=== PATIENT | male | born 1990 | race Asian ===

== ENCOUNTER 2017-09-04 09:17 | Emergency (ER) | payer MEDICAID, OTHER ==
--- NOTE | 2017-09-04 10:20 | ED Physician Documentation ---
PD HPI CHEST PAIN - Stated complaint Stated Complaint: SOA - Chief complaint Chief Complaint: General - History obtained from History obtained from: Patient - History of Present Illness Timing - onset: How many hours ago (2) Timing - onset during: Emotional event (Arguing with girlfriend.) Timing - duration: Hours (2) Timing - details: Still present Quality: Sharp Location: Right chest Worsened by: Inspiration Associated symptoms: Shortness of air Similar symptoms before: Has not had sx before - Additional information Additional information: The patient is a 26-year-old male who presents with right-sided chest pain that started suddenly about 2 hours prior to arrival, while he was arguing with his girlfriend. He describes it as a sharp pain that is worse with inspiration. He reports associated shortness of breath. He denies cough or fever. He denies history of similar symptoms in the past. He does admit to smoking cigarettes, and smoked methamphetamine this morning. Review of Systems Constitutional: denies: Fever Ears: denies: Tinnitus/ringing Nose: denies: Congestion Throat: denies: Sore throat Cardiac: reports: Chest pain / pressure Respiratory: reports: Dyspnea. denies: Cough GI: denies: Abdominal Pain, Nausea, Vomiting : denies: Dysuria Skin: denies: Rash Musculoskeletal: denies: Back pain, Extremity pain Neurologic: denies: Focal weakness, Numbness, Headache PD PAST MEDICAL HISTORY - Past Medical History Cardiovascular: None Respiratory: None Endocrine/Autoimmune: None - Past Surgical History Past Surgical History: Yes Ortho: Arthroscopic surgery - Allergies Allergies/Adverse Reactions: Allergies Allergy/AdvReac Type Severity Reaction Status Date / Time Penicillins AdvReac Hives Verified 09/04/17 09:28 - Social History Does the pt smoke?: Yes Smoking Status: Current every day smoker Does the pt drink ETOH?: Yes Substance Use and Type: Meth - Immunizations Immunizations are current?: Yes PD ED PE NORMAL - Vitals Vital signs reviewed: Yes (tachycardic) - General General: Alert and oriented X 3, Well developed/nourished - HEENT HEENT: Atraumatic, EOMI, Moist mucous membranes, Pharynx benign - Neck Neck: No adenopathy, No JVD - Cardiac Cardiac: No murmur, Other (Rapid rate, regular rhythm) - Respiratory Respiratory: Clear bilaterally, Other (No chest wall tenderness.) - Abdomen Abdomen: Soft, Non tender, Other (Scaphoid abdomen.) - Back Back: No CVA TTP, No spinal TTP - Derm Derm: No rash - Extremities Extremities: No edema, No calf tenderness / cord - Neuro Neuro: Alert and oriented X 3, No motor deficit Results - Vitals Vitals: Vital Signs - 24 hr 09/04/17 09/04/17 09/04/17 09:23 09:38 10:08 Temperature 38.1 C H Heart Rate 110 H 112 H 106 H Respiratory 18 10 L 14 Rate Blood Pressure 135/85 H 117/68 112/49 L O2 Saturation 99 97 96 09/04/17 09/04/17 09/04/17 10:30 11:25 11:42 Temperature Heart Rate 101 H 60 102 H Respiratory 15 15 15 Rate Blood Pressure 119/59 L 119/63 118/69 O2 Saturation 96 92 99 09/04/17 12:00 Temperature Heart Rate 94 Respiratory 14 Rate Blood Pressure 92/39 L O2 Saturation 96 Oxygen O2 Source Room air - Rads (name of study) CXR Radiology: Prelim report reviewed, EMP read contemporaneously, See rad report ( Normal 2 view chest. No evidence of acute cardiopulmonary abnormality.) PD MEDICAL DECISION MAKING - ED course Complexity details: reviewed results, re-evaluated patient, considered differential, d/w patient ED course: The patient's presentation is most consistent with right sided chest pain due to gastroesophageal reflux. Because of his dramatic initial presentation and sudden onset of his symptoms, the possibility of pneumothorax was considered. Chest x-ray reveals no evidence of pneumothorax or other radiographic abnormality. Treatment in the emergency department included administration of GI cocktail, which markedly improved his symptoms. Prior to discharge I discussed with him the likely cause of his symptoms, symptomatic treatment, as well as potentially worrisome signs or symptoms that should prompt reevaluation in the emergency department. He subsequently left the emergency department prior to receiving his discharge instructions. - Sepsis Event Vital Signs: Vital Signs - 24 hr 09/04/17 09/04/17 09/04/17 09:23 09:38 10:08 Temperature 38.1 C H Heart Rate 110 H 112 H 106 H Respiratory 18 10 L 14 Rate Blood Pressure 135/85 H 117/68 112/49 L O2 Saturation 99 97 96 07/06/18 07/06/18 07/06/18 10:30 11:25 11:42 Temperature Heart Rate 101 H 60 102 H Respiratory 15 15 15 Rate Blood Pressure 119/59 L 119/63 118/69 O2 Saturation 96 92 99 09/04/17 12:00 Temperature Heart Rate 94 Respiratory 14 Rate Blood Pressure 92/39 L O2 Saturation 96 Oxygen O2 Source Room air Departure - Departure Disposition: 01 Home, Self Care Clinical Impression: Chest pain due to GERD Condition: Stable Instructions: ED GERD Discharge Date/Time: 09/04/17 12:43
--- NOTE | 2017-09-04 10:52 | XRAY Report ---
Procedure Date: 09/04/2017 Accession Number: [id number] / [id number] Procedure: XR - Chest 2 View X-Ray CPT Code: 89019 FULL RESULT: EXAM: CHEST RADIOGRAPHY EXAM DATE: 09/04/2017 10:44 AM. CLINICAL HISTORY: Right sided chest pain, sudden onset. COMPARISON: None. TECHNIQUE: 2 views. FINDINGS: Lungs/Pleura: No focal opacities evident. No pleural effusion. No pneumothorax. Normal volumes. Mediastinum: Heart and mediastinal contours are unremarkable. Other: No acute osseous abnormality. IMPRESSION: Normal 2-view chest radiography. No acute cardiopulmonary abnormality. RADIA
[2017-09-04] MEDS ORDERED: LIDOCAINE VISCOUS 2% 15 ML UDC MM STA (11:16)
[2017-09-04] MEDS ORDERED: MAG HYDROX/AL HYDROX/SIMETH 30 ML UDC PO STA (11:16)
[2017-09-04 12:40] VITALS: BP 92/39
== END 2017-09-04 12:43 | disposition home or self-care (01) ==
LOC: ED 09:17
DX: K21.9 Gastro-esophageal reflux disease without esophagitis (principal); R07.9 Chest pain, unspecified; F17.210 Nicotine dependence, cigarettes, uncomplicated
CPT/HCPCS: 71046; 99283; A9270

== ENCOUNTER 2018-01-07 16:14 | Emergency (ER) | payer MEDICAID ==
[2018-01-07 16:28] VITALS: BP 149/100
[2018-01-07] MEDS ORDERED: CLINDAMYCIN 150 MG CAPSULE PO STA (17:07)
[2018-01-07] MEDS ORDERED: ACETAMINOPHEN 325 MG TABLET PO STA (17:07)
[2018-01-07] MEDS ORDERED: IBUPROFEN 800 MG TABLET PO STA (17:07)
[2018-01-07] MEDS ORDERED: LIDOCAINE VISCOUS 2% 15 ML UDC MM STA (17:08)
--- NOTE | 2018-01-07 17:27 | ED Physician Documentation ---
History of Present Illness - Stated complaint Stated Complaint: TOOTH PX - Chief complaint Chief Complaint: Heent - Additonal information Additional information: hx from pt 27 y/o male to ED with severe right upper lower denatl pain X several weeks states he has no dentist think fever at home Review of Systems Constitutional: reports: Fever Throat: reports: Dental pain / toothache PD PAST MEDICAL HISTORY - Past Medical History Cardiovascular: None Respiratory: None Endocrine/Autoimmune: None - Past Surgical History Past Surgical History: Yes Ortho: Arthroscopic surgery - Present Medications Home Medications: Ambulatory Orders Medication Instructions Recorded Confirmed Clindamycin HCl [Clindamycin 300MG 300 mg PO Q6H #28 capsule 01/07/18 CAP] Lidocaine Viscous 2% [Xylocaine 1 ml MM Q4H PRN #30 ml 01/07/18 Viscous 2%] - Allergies Allergies/Adverse Reactions: Allergies Allergy/AdvReac Type Severity Reaction Status Date / Time Penicillins AdvReac Hives Verified 01/07/18 16:27 - Social History Does the pt smoke?: Yes Smoking Status: Current every day smoker Does the pt drink ETOH?: Yes - Immunizations Immunizations are current?: Yes PD ED PE NORMAL - Vitals Vital signs reviewed: Yes - General General: Alert and oriented X 3 - HEENT HEENT: No: Dentition benign (extensive deyay only right upper molar has prior filling but gap between gum and tooth and erythema, last two lower right molars are extensively decayed down to the gum line, no trismus, no sublingual swelling) - Neck Neck: Supple, no meningeal sign - Cardiac Cardiac: RRR - Respiratory Respiratory: No respiratory distress Results - Vitals Vitals: Vital Signs - 24 hr 01/07/18 16:26 Temperature 37 C Heart Rate 102 H Respiratory 18 Rate Blood Pressure 149/100 H O2 Saturation 100 Oxygen O2 Source Room air PD MEDICAL DECISION MAKING - ED course ED course: pt felt much better after apap motin and lidocaine Departure - Departure Disposition: 01 Home, Self Care Clinical Impression: Dental infection Condition: Good Instructions: ED Abscess Dental Prescriptions: Clindamycin HCl [Clindamycin 300MG CAP] 300 mg PO Q6H #28 capsule Lidocaine Viscous 2% [Xylocaine Viscous 2%] 1 ml MM Q4H PRN #30 ml PRN Reason: tooth pain Comments: The antibiotic will help fo a short while but you really need to see a dentist I suggest [facility] in [place] Or you can call your insurance to see which dental clinics are covered. When you call to schedule please say you need an ER follow up - that may help you get seen sooner Return if worse - swelling to face or under the tongue, unable to swallow or breathe Forms: Activity restrictions
== END 2018-01-07 18:11 | disposition home or self-care (01) ==
LOC: ED 16:14
DX: K04.7 Periapical abscess without sinus (principal); F17.200 Nicotine dependence, unspecified, uncomplicated
CPT/HCPCS: 99283; A9270

== ENCOUNTER 2018-04-21 11:42 | Emergency (ER) | payer MEDICAID ==
[2018-04-21 11:58] VITALS: BP 122/76
--- NOTE | 2018-04-21 13:13 | ED Physician Documentation ---
PD HPI URI - Stated complaint Stated Complaint: DIFF BREATHING - Chief complaint Chief Complaint: Resp - History obtained from History obtained from: Patient - History of Present Illness Timing - onset: Other (He has had a productive cough for about a week, with difficulty breathing and dyspnea on exertion for the last 2-3 days. The cough is productive of green sputum. He had a fever 2 days ago to 101. He has no history of asthma but is a long-standing smoker. No pedal edema.) Review of Systems Constitutional: reports: Fever, Chills, Fatigue Nose: denies: Rhinorrhea / runny nose, Congestion Throat: reports: Sore throat Cardiac: reports: Chest pain / pressure Respiratory: reports: Dyspnea, Cough GI: denies: Abdominal Pain PD PAST MEDICAL HISTORY - Past Medical History Past Medical History: Yes Cardiovascular: None Respiratory: Pneumonia, Shortness of breath, Other Neuro: Other Endocrine/Autoimmune: None GI: None : None HEENT: None Psych: None Musculoskeletal: None Derm: None Other Past Medical History: mennigitis - Past Surgical History Past Surgical History: Yes Ortho: Arthroscopic surgery - Present Medications Home Medications: Ambulatory Orders Medication Instructions Recorded Confirmed Albuterol Sulf [Ventolin Hfa 1 - 2 puffs INH Q4HR PRN #1 inhaler 04/21/18 Inhaler] Doxycycline Hyclate 100 mg PO BID #20 capsule 04/21/18 Hydrocodone/Chlorphen P-Stirex 5 ml PO BID PRN #90 ml 04/21/18 [Hydrocodone-Chlorphen ER Susp] predniSONE [Deltasone] 60 mg PO DAILY 5 Days tablet 04/21/18 - Allergies Allergies/Adverse Reactions: Allergies Allergy/AdvReac Type Severity Reaction Status Date / Time Penicillins AdvReac Hives Verified 04/21/18 11:58 - Social History Does the pt smoke?: Yes Smoking Status: Current every day smoker Does the pt drink ETOH?: Yes ETOH Use: Beer, Liquor Does the pt have substance abuse?: No Substance Use and Type: Marijuana - Immunizations Immunizations are current?: Yes - POLST Patient has POLST: No PD ED PE NORMAL - Vitals Vital signs reviewed: Yes - General General: Alert and oriented X 3, No acute distress - HEENT HEENT: PERRL, Pharynx benign - Neck Neck: Supple, no meningeal sign, No bony TTP - Cardiac Cardiac: RRR, No murmur - Respiratory Respiratory: No respiratory distress, Other (Nonlabored, wheezy throughout with rhonchi at the bases.) - Abdomen Abdomen: Non tender - Back Back: No CVA TTP, No spinal TTP - Derm Derm: Normal color, Warm and dry - Extremities Extremities: No edema, No calf tenderness / cord - Neuro Neuro: Alert and oriented X 3, Normal speech Results - Vitals Vitals: Vital Signs - 24 hr 04/21/18 11:55 Temperature 36.4 C L Heart Rate 102 H Respiratory 16 Rate Blood Pressure 122/76 O2 Saturation 99 Oxygen O2 Source Room air - Labs Labs: Laboratory Tests 04/21/18 12:00 Influenza A (Rapid) Negative Influenza B (Rapid) Negative PD MEDICAL DECISION MAKING - ED course ED course: Given long-standing tobacco abuse probably has some underlying lung disease and despite typical findings of bronchitis he is given antibiotics in addition to routine treatments. Departure - Departure Disposition: 01 Home, Self Care Clinical Impression: Bronchitis Condition: Good Record reviewed to determine appropriate education?: Yes Instructions: ED Bronchitis Asthmatic Prescriptions: Albuterol Sulf [Ventolin Hfa Inhaler] 1 - 2 puffs INH Q4HR PRN #1 inhaler PRN Reason: Shortness Of Air/Wheezing Doxycycline Hyclate 100 mg PO BID #20 capsule Hydrocodone/Chlorphen P-Stirex [Hydrocodone-Chlorphen ER Susp] 5 ml PO BID PRN #90 ml PRN Reason: Cough predniSONE [Deltasone] 60 mg PO DAILY 5 Days tablet Comments: Followup with your doctor in 1 week, return if worse.
== END 2018-04-21 13:33 | disposition home or self-care (01) ==
LOC: ED 11:42
DX: J40 Bronchitis, not specified as acute or chronic (principal); F17.200 Nicotine dependence, unspecified, uncomplicated
CPT/HCPCS: 87275; 87276; 99283

== ENCOUNTER 2018-07-06 03:24 | Emergency (ER) | payer MEDICAID ==
[2018-07-06 03:40] VITALS: BP 126/85
--- NOTE | 2018-07-06 03:48 | ED Physician Documentation ---
PD HPI SKIN - Stated complaint Stated Complaint: INSECT BITE/PX - Chief complaint Chief Complaint: General - History obtained from History obtained from: Patient - History of Present Illness Timing - onset: Yesterday Timing - details: Gradual onset Pain level now: 5 Location: LLE Quality / character: Painful, Discolored Associated symptoms: No: Fever Similar symptoms before: Has not had sx before Recently seen: Not recently seen - Additional information Additional information: c/o painful, red swelling behind left knee since yesterday. denies injury. Review of Systems Constitutional: denies: Fever, Chills, Sweats Skin: reports: Rash Musculoskeletal: reports: Extremity pain PD PAST MEDICAL HISTORY - Past Medical History Cardiovascular: None Respiratory: Pneumonia, Shortness of breath, Other Neuro: Other Endocrine/Autoimmune: None GI: None : None HEENT: None Psych: None Musculoskeletal: None Derm: None - Past Surgical History Past Surgical History: Yes Ortho: Arthroscopic surgery - Present Medications Home Medications: Ambulatory Orders Medication Instructions Recorded Confirmed Albuterol Sulf [Ventolin Hfa 1 - 2 puffs INH Q4HR PRN #1 inhaler 04/21/18 Inhaler] Doxycycline Hyclate 100 mg PO BID #20 capsule 04/21/18 Hydrocodone/Chlorphen P-Stirex 5 ml PO BID PRN #90 ml 04/21/18 [Hydrocodone-Chlorphen ER Susp] predniSONE [Deltasone] 60 mg PO DAILY 5 Days tablet 04/21/18 Cephalexin [Keflex] 500 mg PO QID #39 capsule 07/06/18 Ibuprofen 600 mg PO TID PRN #20 tablet 07/06/18 Sulfamethox/Trimeth 800/160 1 each PO BID #19 tablet 07/06/18 [Bactrim Ds 800/160] - Allergies Allergies/Adverse Reactions: Allergies Allergy/AdvReac Type Severity Reaction Status Date / Time Penicillins AdvReac Hives Verified 04/21/18 11:58 - Social History Does the pt smoke?: Yes Smoking Status: Current every day smoker Does the pt drink ETOH?: Yes Does the pt have substance abuse?: No - Immunizations Immunizations are current?: Yes - POLST Patient has POLST: No PD ED PE NORMAL - Vitals Vital signs reviewed: Yes - General General: Alert and oriented X 3, No acute distress, Well developed/nourished PD ED PE EXPANDED - Extremities VINCE LE visual: 1 - rash (confluent erythema with sharp margins, no fluctuance or discharge, no palpable abscess), swelling, tenderness Results - Vitals Vitals: Vital Signs - 24 hr 07/06/18 03:36 Temperature 37.1 C Heart Rate 85 Respiratory 18 Rate Blood Pressure 126/85 H O2 Saturation 100 Oxygen O2 Source Room air PD MEDICAL DECISION MAKING - ED course Complexity details: considered differential, d/w patient Departure - Departure Disposition: 01 Home, Self Care Clinical Impression: Cellulitis Condition: Good Instructions: ED Infec Skin Cellulitis Follow-Up: [facility] [Provider Group] Prescriptions: Cephalexin [Keflex] 500 mg PO QID #39 capsule Ibuprofen 600 mg PO TID PRN #20 tablet PRN Reason: Pain Sulfamethox/Trimeth 800/160 [Bactrim Ds 800/160] 1 each PO BID #19 tablet Forms: Activity restrictions Discharge Date/Time: 07/06/18 04:21
[2018-07-06] MEDS ORDERED: cephALEXin 250 MG CAPSULE PO STA (04:05)
[2018-07-06] MEDS ORDERED: IBUPROFEN 600 MG TABLET PO STA (04:05)
[2018-07-06] MEDS ORDERED: SULFAMETH/TRIMETH DS 800/160 MG TABLET PO STA (04:05)
== END 2018-07-06 04:21 | disposition home or self-care (01) ==
LOC: ED 03:24
DX: L03.116 Cellulitis of left lower limb (principal); F17.200 Nicotine dependence, unspecified, uncomplicated
CPT/HCPCS: 99283; A9270

== ENCOUNTER 2018-07-07 09:51 | Emergency (ER) | payer MEDICAID ==
--- NOTE | 2018-07-07 12:05 | ED Physician Documentation ---
PD HPI WOUND RECHECK - Stated complaint Stated Complaint: WOUND CHECK - Chief complaint Chief Complaint: Wound - Histroy obtained from History obtained from: Patient - History of Present Illness Location: Left Lower Extremity Timing - onset: How many days ago (3) Associated symptoms: Redness, Swelling, Drainage Similar symptoms before: Diagnosis (abcess) Recently seen: Emergency Dept - Additional information Additional information: 27-year-old male with an abscess behind his left knee at the distal thigh has been placed on some antibiotic 2 nights ago and he is now developed some drainage and he is return to the emergency department as instructed. He states that when the drainage occurred he had a decrease in his pain. Review of Systems Constitutional: denies: Fever Ears: denies: Ear pain Nose: denies: Congestion Throat: denies: Oral lesions / sores Respiratory: denies: Cough GI: denies: Vomiting Skin: reports: Lesions Musculoskeletal: reports: Extremity pain. denies: Neck pain, Back pain PD PAST MEDICAL HISTORY - Past Medical History Cardiovascular: None Respiratory: Pneumonia, Shortness of breath, Other Neuro: Other Endocrine/Autoimmune: None GI: None : None HEENT: None Psych: None Musculoskeletal: None Derm: None - Past Surgical History Past Surgical History: Yes Ortho: Arthroscopic surgery - Present Medications Home Medications: Ambulatory Orders Medication Instructions Recorded Confirmed Albuterol Sulf [Ventolin Hfa 1 - 2 puffs INH Q4HR PRN #1 inhaler 04/21/18 07/07/18 Inhaler] Cephalexin [Keflex] 500 mg PO QID #39 capsule 07/06/18 07/07/18 Ibuprofen 600 mg PO TID PRN #20 tablet 07/06/18 07/07/18 Sulfamethox/Trimeth 800/160 1 each PO BID #19 tablet 07/06/18 07/07/18 [Bactrim Ds 800/160] - Allergies Allergies/Adverse Reactions: Allergies Allergy/AdvReac Type Severity Reaction Status Date / Time Penicillins AdvReac Hives Verified 07/07/18 10:05 - Social History Does the pt smoke?: Yes Smoking Status: Current every day smoker Does the pt drink ETOH?: Yes Does the pt have substance abuse?: No - Immunizations Immunizations are current?: Yes - POLST Patient has POLST: No PD ED PE NORMAL - Vitals Vital signs reviewed: Yes (hpyertensive ) - General General: Alert and oriented X 3, No acute distress, Well developed/nourished - HEENT HEENT: Atraumatic, PERRL, EOMI - Neck Neck: Supple, no meningeal sign - Respiratory Respiratory: No respiratory distress - Derm Derm: Normal color, Warm and dry - Extremities Extremities: No deformity, Other (over the posterior aspect of the left thigh distally there is an area of eythema and tenderness with drainage present. There is no fluctuance and thick pus is expressed from the site and a culture is ob tained.) - Neuro Neuro: Alert and oriented X 3, shipping and receiving 2-12 intact, No motor deficit, No sensory deficit, Normal speech Eye Opening: Spontaneous Motor: Obeys Commands Verbal: Oriented GCS Score: 15 - Psych Psych: Normal mood, Normal affect Results - Vitals Vitals: Vital Signs - 24 hr 07/07/18 10:02 Temperature 36.6 C Heart Rate 93 Respiratory 14 Rate Blood Pressure 138/88 H O2 Saturation 100 Oxygen O2 Source Room air PD MEDICAL DECISION MAKING - ED course Complexity details: considered differential, d/w patient ED course: 27-year-old male with an abscess that is now ripe and is begun to drain. He is encouraged to continue the current antibiotics he is on and to use a warm compress 2-3 times per day. A culture is obtained. Departure - Departure Disposition: 01 Home, Self Care Clinical Impression: Abscess Condition: Stable Instructions: ED Staph Infec Abx Tx Only Follow-Up: [facility] [Provider Group] Comments: Today it looks like the pus has begun to drain from an abscess. Use a warm compress 2-3 times per day for about 10 minutes each and attempt to express contents of the abscess.
[2018-07-07 12:26] VITALS: BP 130/82
== END 2018-07-07 12:24 | disposition home or self-care (01) ==
LOC: ED 09:51
DX: L02.416 Cutaneous abscess of left lower limb (principal); F17.200 Nicotine dependence, unspecified, uncomplicated
CPT/HCPCS: 87070; 87181; 87205; 99282; 99283

== ENCOUNTER 2019-01-05 01:47 | Outpatient (CLI) | payer MEDICAID | END 2019-01-05 01:48 | disposition critical access hospital (66) | LOC: EMS 01:47 | PROVIDERS: ATTEND Surgery | DX: S49.91XA Unspecified injury of right shoulder and upper arm, initial encounter (principal); V18.0XXA Pedal cycle driver injured in noncollision transport accident in nontraffic accident, initial encounter; Y93.55 Activity, bike riding; Y92.007 Garden or yard of unspecified non-institutional (private) residence as the place of occurrence of the external cause | CPT/HCPCS: A0425; A0427; A0999 ==

== ENCOUNTER 2019-01-05 02:17 | Emergency (ER) | payer MEDICAID ==
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
[2019-01-05] MEDS ORDERED: HYDROmorphone 1 MG/ML CARPUJECT IVP STA ×3 (02:50→06:00)
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
[2019-01-05] MEDS ORDERED: ACETAMINOPHEN 1,000 MG/100 ML 100 ML IV STA (04:33)
[2019-01-05] MEDS ORDERED: oxyCODONE 5 MG TABLET PO STA (06:11)
[2019-01-05 06:31] VITALS: BP 115/80
== END 2019-01-05 07:06 | disposition home or self-care (01) ==
LOC: EDUNIT# → ED 02:17
DX: S42.021A Displaced fracture of shaft of right clavicle, initial encounter for closed fracture (principal); V18.0XXA Pedal cycle driver injured in noncollision transport accident in nontraffic accident, initial encounter; Y93.55 Activity, bike riding; Y92.007 Garden or yard of unspecified non-institutional (private) residence as the place of occurrence of the external cause; F17.200 Nicotine dependence, unspecified, uncomplicated
CPT/HCPCS: 71046; 73000; 99284; A9270; J0131; J1170

== ENCOUNTER 2019-01-12 10:10 | Day surgery (SDC) | payer MEDICAID ==
[~2019-01-12 10:10] MED LIST: CEFAZOLIN SODIUM IN 0.9 % NACL 2 GM/100 ML BAG IV ONE
[2019-01-12] MEDS ORDERED: PROPOFOL 200 MG/20 ML VIAL IVP ONE (10:11)
[2019-01-12] MEDS ORDERED: KETOROLAC 30 MG/ML VIAL IVP ONE (10:11)
[2019-01-12] MEDS ORDERED: LIDOCAINE 2% 10 ML MDV SUBQ ONE (10:11)
[2019-01-12] MEDS ORDERED: ePHEDrine 50 MG/ML VIAL IVP ONE (10:11)
[2019-01-12] MEDS ORDERED: MIDAZOLAM 2 MG/2 ML VIAL IVP ONE (10:11)
[2019-01-12] MEDS ORDERED: ROCURONIUM 50 MG/5 ML VIAL IVP ONE (10:11)
[2019-01-12] MEDS ORDERED: fentaNYL 100 MCG/2 ML VIAL IVP ONE (10:11)
[2019-01-12] MEDS ORDERED: LACTATED RINGERS 1,000 ML IV ONE ×2 (10:35→12:48)
--- NOTE | 2019-01-12 10:50 | ANESTHESIA ---
Pre-Anesthesia VS, & Labs - Diagnosis right clavicle fracture - Procedure right orif clavicle fracture Vital Signs: Temp Pulse Resp BP Pulse Ox 36.3 C L 93 18 144/98 H 01/12/19 10:19 01/12/19 10:19 01/12/19 10:19 01/12/19 10:19 Height 5 ft 8 in Weight (kg) 70 kg Body Mass Index 24.3 - NPO >8 hours Home Medications and Allergies Allergies/Adverse Reactions: Allergies Allergy/AdvReac Type Severity Reaction Status Date / Time Penicillins AdvReac Hives Verified 07/07/18 10:05 Anes History & Medical History - Anesthetic History Anesthesia Complications: reports: No previous complications - Medical History Cardiovascular: reports: None Pulmonary: reports: None Gastrointestinal: reports: None Urinary: reports: None Neuro: reports: None Musculoskeletal: reports: None Endocrine/Autoimmune: reports: None Blood Disorders: reports: None Skin: reports: None Smoking Status: Current every day smoker (1/2 pack per day for 14 years) Psychosocial: reports: Cannabis (Uses cannabis every other day) - Surgical History Orthopedic: ACL reconstruction Exam General: Alert, Oriented x3, Cooperative, No acute distress Dental: WNL Mouth Openin Fingerbreadth Neck Mobility: Normal Mallampati classification: I Thyromental Distance: greater than 6 cm Respiratory: Lungs clear, Normal breath sounds, No respiratory distress, No accessory muscle use Cardiovascular: Regular rate, Normal S1, Normal S2, No murmurs Mental/Cognitive Status: Alert/Oriented X3, Normal for patient Plan Anesthesia Type: General, Interscalene Block (right), Other Block (right superficial cervical plexus block) Consent for Procedure(s) Verified and Reviewed: Yes Code Status: Attempt Resuscitation ASA classification: 2-Mild systemic disease Is this case an emergency?: No
[2019-01-12] MEDS ORDERED: LIDOCAINE 1%-EPI 1:100000 20 ML MDV ONE (11:06)
[2019-01-12] MEDS ORDERED: BUPIVACAINE 0.5% PF 30 ML VIAL ONE (11:06)
--- NOTE | 2019-01-12 12:05 | ANESTHESIA PROCEDURE NOTE ---
Diagnosis: Right clavicle fracture Procedure: ORIF right clavicle Consent for Procedure(s) Verified and Reviewed: Yes Height and Weight: Height 5 ft 8 in Weight (kg) 70 kg Body Mass Index 24.3 Vital Signs: Temp Pulse Resp BP Pulse Ox 36.3 C L 93 18 144/98 H 01/12/19 10:19 01/12/19 10:19 01/12/19 10:19 01/12/19 10:19 Allergies Penicillins Adverse Reaction (Verified 07/07/18 10:05) Hives Requesting Provider: Ann Marie Location: right Interscalene block and right superficial cervical plexus block ASA classification: 2-Mild systemic disease Is this case an emergency?: No Anes. Monitoring and Equipment: Non-invasive BP, Pulse oximetery (EKG) Anes. Procedure Start Time: 11:00 Anes. Procedure Stop Time: 11:10 Procedure Notes: Right neck and shoulder area prepped with chlorahexadine, The patient was given a total of 100mcg fentanyl and 2mg versed for sedation. The right brachial plexus between the anterior and middle scalene muscles was identified. A 22G stimiplex needle was inserted and directed to the brachial plexus under ultrasound guidance. A total of 20ml of 0.5% ropivicane with 4mg decadron injected around the brachial plexus with adequate spread noted. Next, the superficial cervical plexus was identified and needle was inserted. A total of 10ml of 0.5% ropivicaine was injected around the plexus with adequate spread noted. Patient tolerated the procedure well. Full evaluation is pending.
--- NOTE | 2019-01-12 13:38 | IMMEDIATE POSTOPERATIVE NOTE ---
Immediate Postoperative Note - Procedure Note Procedure Date: 01/12/19 Pre-Op Diagnosis: Right clavicle fracture Procedure: Right clavicle ORIF Post-Op Diagnosis: Same Primary Surgeon: Adama Jesus Melt House Centrifugal Operator: None Anesthesia Type: General ET tube, Regional block Complications: No complications Estimated Blood Loss (in cc): 50 Plan of Care: Patella procedure well instrument sponge counts correct patient transferred to recovery room in stable condition
[2019-01-12] MEDS ORDERED: ONDANSETRON 4 MG/2 ML VIAL IVP PRN (13:39)
[2019-01-12] MEDS ORDERED: oxyCODONE 5 MG TABLET PO PRN (13:39)
--- NOTE | 2019-01-12 14:16 | XRAY Report ---
Reason: ORIF CLAVICLE Procedure Date: 01/12/2019 Accession Number: [id number] / [id number] Procedure: FL - OR C-Arm Procedure CPT Code: Final Report FULL RESULT: EXAM: FLUOROSCOPIC GUIDANCE EXAM DATE: 01/12/2019 01:00 PM. CLINICAL HISTORY: ORIF CLAVICLE. COMPARISON: None. FINDINGS: There is a plate and screws within the clavicle. IMPRESSION: Fluoroscopic guidance provided for Dr. Jesus. Total fluoroscopy time: 0.1. Number of images: 2. RADIA
[2019-01-12 14:50] VITALS: BP 134/83
--- NOTE | 2019-01-12 15:11 | ANESTHESIA PROCEDURE NOTE ---
Diagnosis: Right clavicle fracture Procedure: right interscalene block and right superficial cervical block Consent for Procedure(s) Verified and Reviewed: Yes Height and Weight: Height 5 ft 8 in Weight (kg) 70 kg Body Mass Index 24.3 Vital Signs: Temp Pulse Resp BP Pulse Ox 37 C 105 H 18 134/83 H 96 01/12/19 14:49 01/12/19 14:49 01/12/19 14:49 01/12/19 14:49 01/12/19 14:49 Allergies Penicillins Adverse Reaction (Verified 07/07/18 10:05) Hives Requesting Provider: Ann Marie Location: Right ASA classification: 2-Mild systemic disease Is this case an emergency?: No Anes. Monitoring and Equipment: Non-invasive BP, Pulse oximetery, Sterile prep and drape Anes. Procedure Start Time: 11:00 Anes. Procedure Stop Time: 11:10 Procedure Notes: Patient's right neck was prepped with chlorahexadine. 2mg versed and 100mcg fentanyl given for patient comfort. The right brachial plexus was identified between the middle and anterior scalene muscles. A 22G stimiplex needle was inserted and directed to the plexus sheath under ultrasound guidance. A total of 20ml of 0.5% ropivicaine with 4mg decadron was injected around the plexus with adequate spread noted. The superficial cervical plexus was identified under ultrasound. A 22G stimiplex needle was advanced towards plexus and a total of 10ml of 0.5% Ropivicaine was injected around the plexus with adequate spread noted. Patient tolerated well. Full evaluation pending.
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
== END 2019-01-12 10:11 | disposition home or self-care (01) ==
LOC: SDS 10:10
PROVIDERS: ATTEND Orthopaedic Surgery Sports Medicine
PROC: 0PS904Z Reposition Right Clavicle with Internal Fixation Device, Open Approach (ICD-10-PCS; principal; 2019-01-12 11:00)
DX: S42.021A Displaced fracture of shaft of right clavicle, initial encounter for closed fracture (principal); V19.3XXA Pedal cyclist (driver) (passenger) injured in unspecified nontraffic accident, initial encounter; Y93.55 Activity, bike riding; F17.210 Nicotine dependence, cigarettes, uncomplicated; Z72.89 Other problems related to lifestyle
CPT/HCPCS: 23515; C1713; J0690; J7120

== ENCOUNTER 2019-03-22 16:26 | Outpatient (CLI) | payer MEDICAID | END 2019-03-22 16:27 | disposition critical access hospital (66) | LOC: EMS 16:26 | PROVIDERS: ATTEND Surgery | DX: R10.9 Unspecified abdominal pain (principal); N50.811 Right testicular pain; R11.0 Nausea | CPT/HCPCS: A0425; A0427; A0999 ==

== ENCOUNTER 2019-03-22 16:55 | Emergency (ER) | payer MEDICAID ==
--- NOTE | 2019-03-22 17:12 | ED Physician Documentation ---
PD HPI BACK PAIN - Stated complaint Stated Complaint: R FLANK PX - Chief complaint Chief Complaint: Back Pain - History obtained from History obtained from: Patient - History of Present Illness Timing - onset: Today Timing - duration: Hours (7) Pain level now: 10 Location: Mid, Right Quality: Pain Associated symptoms: No: Fever, Incontinent of urine, Hematuria Recently seen: Not recently seen - Additional information Additional information: This is a 28-year-old man who presents with complaints that he had the abrupt onset of pain in his right lower back radiating into the right testicle at 10 AM this morning. Is just gotten progressively more severe to that since that time that he cannot tolerate it. He is been nauseous but no vomiting. No blood in the urine. He did not try to take any medications at home for the pain. He denies any history of kidney stones. His only prior surgery is shoulder surgery. Review of Systems Constitutional: denies: Fever GI: reports: Nausea. denies: Abdominal Pain, Vomiting : reports: Testicular pain. denies: Dysuria, Frequency, Hematuria Skin: denies: Rash Musculoskeletal: reports: Back pain Neurologic: reports: Near syncope PD PAST MEDICAL HISTORY - Past Medical History Cardiovascular: None Respiratory: None Neuro: None Endocrine/Autoimmune: None GI: None : None HEENT: None Psych: None Musculoskeletal: None Derm: None - Past Surgical History Past Surgical History: Yes Ortho: ACL reconstruction - Present Medications Home Medications: Ambulatory Orders Medication Instructions Recorded Confirmed Albuterol Sulf [Ventolin Hfa 1 - 2 puffs INH Q4HR PRN #1 inhaler 04/21/18 01/12/19 Inhaler] Oxycodone HCl/Acetaminophen 1 - 2 each PO Q6H PRN #20 tablet 01/05/19 01/12/19 [Percocet 5-325 mg Tablet] Tamsulosin [Flomax] 0.4 mg PO DAILY #20 capsule 03/22/19 - Allergies Allergies/Adverse Reactions: Allergies Allergy/AdvReac Type Severity Reaction Status Date / Time Penicillins AdvReac Hives Verified 03/22/19 16:59 - Social History Does the pt smoke?: Yes Smoking Status: Current every day smoker (1/2 pack per day for 14 years) Does the pt drink ETOH?: No Does the pt have substance abuse?: No - Immunizations Immunizations are current?: No Immunizations: TDAP >10years/unknown - POLST Patient has POLST: No PD ED PE NORMAL - Vitals Vital signs reviewed: Yes - General General: Alert and oriented X 3, Other (Patient was sitting on the toilet leaning onto the toilet bowl paper dispenser moaning in pain. We were able to get him into the bed where he was on his back, shifting back and forth in pain. He looked very pale.) - HEENT HEENT: Atraumatic, PERRL. No: Moist mucous membranes (Dry mucous membranes) - Cardiac Cardiac: RRR, No murmur, Strong equal pulses - Respiratory Respiratory: No respiratory distress, Clear bilaterally - Abdomen Abdomen: Other (Hypoactive bowel sounds. He is holding his abdominal musculature very tight.) - Male Male : Other (Testes are descended bilaterally but the right testicle is exquisitely tender. Does not feel particularly swollen. The left testicle is nontender.) - Back Back: No: No CVA TTP (There is right costovertebral angle tenderness) - Derm Derm: Other (Patient is very pale.) - Extremities Extremities: No edema - Neuro Neuro: Alert and oriented X 3, No motor deficit, No sensory deficit, Normal speech - Psych Psych: Normal mood, Normal affect Results - Vitals Vitals: Vital Signs - 24 hr 03/22/19 03/22/19 16:59 17:06 Temperature 36.5 C 36.4 C L Heart Rate 84 50 L Respiratory 20 18 Rate Blood Pressure 154/106 H 152/102 H O2 Saturation 100 100 Oxygen O2 Source Room air - Labs Labs: Laboratory Tests 03/22/19 03/22/19 03/22/19 17:15 17:55 17:55 WBC 6.7 RBC 4.73 Hgb 13.7 L Hct 41.0 L MCV 86.7 MCH 29.0 MCHC 33.4 RDW 12.4 Plt Count 165 MPV 9.6 Neut # (Auto) 5.3 Lymph # (Auto) 0.8 L [place] # (Auto) 0.6 Eos # (Auto) 0.1 Baso # (Auto) 0.0 Absolute Nucleated RBC 0.00 Nucleated RBC % 0.0 Sodium 137 Potassium 4.2 Chloride 102 Carbon Dioxide 26 Anion Gap 9.0 BUN 21 H Creatinine 1.0 Estimated GFR (MDRD) 88 L Glucose 141 H Calcium 8.7 Total Bilirubin 0.8 AST 83 H ALT 146 H Alkaline Phosphatase 93 Total Protein 7.1 Albumin 4.0 Globulin 3.1 Albumin/Globulin Ratio 1.3 Lipase 21 L Urine Color YELLOW Urine Clarity CLEAR Urine pH 7.0 Ur Specific [place] 1.020 Urine Protein NEGATIVE Urine Glucose (UA) NEGATIVE Urine Ketones 15 H Urine Occult Blood LARGE H Urine Nitrite NEGATIVE Urine Bilirubin NEGATIVE Urine Urobilinogen 1 (NORMAL) Ur Leukocyte Esterase NEGATIVE Urine RBC TNTC H Urine WBC 0-3 Ur Squamous Epith Cells NONE SEEN Urine Bacteria None Seen Ur Microscopic Review INDICATED Urine Culture Comments NOT INDICATED PD MEDICAL DECISION MAKING - ED course Complexity details: reviewed results, re-evaluated patient, d/w patient ED course: 1846: Patient had an IV started and he was given Toradol 30 mg IV. Labs were obtained and a urine specimen which did show blood. My initial concern with the tenderness in the testicle was about testicle in the urine lower torsion and an ultrasound confirmed flow without torsion. CT scan was obtained and there is a right UVJ stone with some right-sided hydronephrosis. On reevaluation the patient stated that he was feeling better the pain was essentially gone. He declined any further pain medications. He was given a urine strainer and Flomax. We have hung a second liter of fluids and will plan to discharge with instructions for him to strain his urine take ibuprofen for pain and pre scription for Flomax and just a few doses of hydrocodone if the pain returns. Departure - Departure Disposition: 01 Home, Self Care Clinical Impression: Renal colic on right side Condition: Good Instructions: ED Stone Renal W Colic Follow-Up: [facility] [Provider Group] Prescriptions: Tamsulosin [Flomax] 0.4 mg PO DAILY #20 capsule Comments: Strain all the urine and save the stone if it is passed. Make sure that you are drinking at least ten 8 ounce glasses of water a day. May use ibuprofen for the pain up to 3 to 4 tablets every 8 hours with food. Take the Flomax daily until the stone is passed. Follow-up with your primary care provider with the stone to have it analyzed and for recheck. It is imperative that you follow-up if you have not passed a stone in 2 weeks for reevaluation.
[2019-03-22] MEDS ORDERED: KETOROLAC 30 MG/ML VIAL IVP STA (17:23)
[2019-03-22] MEDS ORDERED: SODIUM CHLORIDE 0.9% 1,000 ML IV ONE ×2 (17:23→18:32)
[2019-03-22] MEDS ORDERED: ONDANSETRON 4 MG/2 ML VIAL IVP STA (17:23)
[2019-03-22 17:44] LABS: BILIRUBIN,URINE NEGATIVE (NEGATIVE); GLUCOSE, URINE (UA) NEGATIVE (NEGATIVE); KETONES,URINE (UA) 15 mg/dL (NEGATIVE); LEUKOCYTE ESTERASE, URINE NEGATIVE (NEGATIVE); NITRITE,URINE NEGATIVE (NEGATIVE); OCCULT BLOOD,URINE LARGE (NEGATIVE); PROTEIN,URINE NEGATIVE (NEGATIVE); UROBILINOGEN,URINE 1 (NORMAL) E.U./dL (NORMAL)
[2019-03-22 17:45] LABS: CLARITY,URINE CLEAR (CLEAR)
[2019-03-22 18:01] LABS: BACTERIA,URINE None Seen /HPF (None Seen); RBC,URINE TNTC /HPF (0-5); SQUAMOUS EPITHELIAL CELL,UR NONE SEEN (<= Few)
[2019-03-22 18:04] LABS: BASOPHILS % (AUTO) 0.1 %; EOSINOPHILS # (AUTO) 0.1 10^3/uL (0.0-0.7); EOSINOPHILS % (AUTO) 1.2 %; HGB - HEMOGLOBIN 13.7 g/dL (14.0-18.0); LYMPHOCYTES # (AUTO) 0.8 10^3/uL (1.5-3.5); LYMPHOCYTES % (AUTO) 11.5 %; MEAN CORPUSCULAR HGB CONC 33.4 g/dL (32.0-36.0); MEAN CORPUSCULAR VOLUME 86.7 fL (80.0-94.0); MEAN PLATELET VOLUME 9.6 fL (7.4-11.4); MONOCYTES # (AUTO) 0.6 10^3/uL (0.0-1.0); MONOCYTES % (AUTO) 8.5 %; NEUTROPHILS # (AUTO) 5.3 10^3/uL (1.5-6.6); NEUTROPHILS % (AUTO) 78.6 %; PLT - PLATELET COUNT 165 10^3/uL (130-450); RED BLOOD COUNT 4.73 10^6/uL (4.70-6.10); RED CELL DISTRIBUTION WIDTH 12.4 % (12.0-15.0); WHITE BLOOD COUNT 6.7 x10^3/uL (4.8-10.8)
[2019-03-22 18:17] LABS: ALBUMIN/GLOBULIN RATIO 1.3 (1.0-2.2); BILIRUBIN,TOTAL 0.8 mg/dL (0.2-1.0); CALCIUM 8.7 mg/dL (8.5-10.3); TOTAL PROTEIN 7.1 g/dL (6.7-8.2)
--- NOTE | 2019-03-22 18:24 | Ultrasound Report ---
Reason: R testicle pain Procedure Date: 03/22/2019 Accession Number: [id number] / [id number] Procedure: US - Testicle w/Doppler CPT Code: Final Report FULL RESULT: EXAM: SCROTAL ULTRASOUND EXAM DATE: 03/22/2019 06:11 PM. CLINICAL HISTORY: Right testicle pain. COMPARISON: None. TECHNIQUE: Real-time scanning was performed with static images obtained. Color-flow images were utilized. FINDINGS: Right: Testis: 4.7 x 2.6 x 3.2 cm. Normal size and echotexture. No mass, calcification, or abnormal blood flow. Epididymis: 1.1 x 0.9 x 0.8 cm. Normal size and echotexture. No mass or abnormal blood flow. Hydrocele: None. Varicocele: None. Left: Testis: 5.1 x 2.5 x 2.9 cm. Normal size and echotexture. No mass, calcification, or abnormal blood flow. Epididymis: 0.8 x 1.1 x 1.3 cm. Normal size and echotexture. No mass or abnormal blood flow. Hydrocele: None. Varicocele: None. IMPRESSION: Normal scrotal ultrasound. RADIA
[2019-03-22] MEDS ORDERED: TAMSULOSIN 0.4 MG CAPSULE PO STA (18:31)
--- NOTE | 2019-03-22 19:00 | CT Report ---
Reason: flank pain Procedure Date: 03/22/2019 Accession Number: [id number] / [id number] Procedure: CT - Abdomen/Pelvis WO CPT Code: Final Report FULL RESULT: EXAM: CT ABDOMEN AND PELVIS (CT KUB) EXAM DATE: 03/22/2019 06:27 PM. CLINICAL HISTORY: Right flank pain. COMPARISONS: None. TECHNIQUE: Routine axial helical CT imaging was performed through the abdomen and pelvis without IV contrast. Reconstructions: Coronal and sagittal. In accordance with CT protocol optimization, one or more of the following dose reduction techniques were utilized for this exam: automated exposure control, adjustment of mA and/or KV based on patient size, or use of iterative reconstructive technique. FINDINGS: Lung Bases: Unremarkable. Right Kidney/Ureter: 2 mm lower pole calculus. Adjacent 4 x 3 x 2 mm and 2 x 2 x 2 mm calculi at the right ureterovesical junction. Mild right hydronephrosis and hydroureter. Mild right perinephric and periureteral fat stranding. Left Kidney/Ureter: 3 mm, 2 mm, 2 mm mid pole left renal calculi. No ureteral calculus. No hydronephrosis or hydroureter. No perinephric or periureteral fat stranding. Other Solid Organs: Noncontrast images of the solid organs are grossly unremarkable. Gallbladder/Bile Ducts: Unremarkable. Peritoneal Cavity: Unopacified stomach and small bowel are nondistended. The appendix is normal. There is a small amount of formed stool scattered in the colon. There is no focal pericolonic fat stranding. There is no lymphadenopathy, ascites, or pneumoperitoneum. Pelvic Organs: Small volume bladder. Right ureterovesical junction calculi are noted above. Prostate gland and seminal vesicles are unremarkable. Vasculature: Unremarkable. Other: Body wall unremarkable. Bones unremarkable. IMPRESSION: 1. Mildly obstructing adjacent 4 x 3 x 2 mm and 2 x 2 x 2 mm calculi at the right ureterovesical junction. 2. 2 mm lower pole right renal calculus. 3. 3 mm, 2 mm, 2 mm midpole left renal calculi. RADIA
[2019-03-22 19:21] VITALS: BP 127/84
== END 2019-03-22 19:43 | disposition home or self-care (01) ==
LOC: EDBD → EDUNIT# → ED 16:55
DX: N13.2 Hydronephrosis with renal and ureteral calculous obstruction (principal); F17.200 Nicotine dependence, unspecified, uncomplicated
CPT/HCPCS: 36415; 74176; 76870; 80053; 81001; 83690; 85025; 93975; 96361; 96374; 99284; A9270; 81003; 87086

== ENCOUNTER 2020-08-19 20:53 | Emergency (ER) | payer MEDICAID ==
[2020-08-19] MEDS ORDERED: DOXYCYCLINE 100 MG TABLET PO STA (22:45)
[2020-08-19] MEDS ORDERED: TETANUS/DIPHTHERIA/PERTUSSIS 0.5 ML SYRINGE IM ONE (22:46)
--- NOTE | 2020-08-19 22:47 | ED Physician Documentation ---
PD HPI SKIN - Stated complaint Stated Complaint: LT ANKLE/ELBOWS SWELLING - Chief complaint Chief Complaint: Wound - History obtained from History obtained from: Patient - Additional information Additional information: Patient comes emergency department chief complaint of red streaks and pain and bilateral upper arms after picking at his elbows. He states he has had scabs on the elbows for a couple of days, but today noticed that his arms seem more painful. He noticed the red streaks at that time. Patient denies any fevers or chills. He denies nausea or vomiting. He has not been ill in any other way. He cannot remember when his last tetanus shot was. No other complaints at this time Review of Systems Ten Systems: 10 systems reviewed and negative Constitutional: reports: Reviewed and negative Eyes: reports: Reviewed and negative Ears: reports: Reviewed and negative Nose: reports: Reviewed and negative Throat: reports: Reviewed and negative Cardiac: reports: Reviewed and negative Respiratory: reports: Reviewed and negative GI: reports: Reviewed and negative : reports: Reviewed and negative Skin: reports: Rash (Erythematous streaks bilateral arms), Lesions Musculoskeletal: reports: Reviewed and negative Neurologic: reports: Reviewed and negative Psychiatric: reports: Reviewed and negative Endocrine: reports: Reviewed and negative Immunocompromised: reports: Reviewed and negative PD PAST MEDICAL HISTORY - Past Medical History Past Medical History: No Cardiovascular: None Respiratory: None Neuro: None Endocrine/Autoimmune: None GI: None : None HEENT: None Psych: None Musculoskeletal: None Derm: None - Past Surgical History Past Surgical History: Yes Ortho: ACL reconstruction - Present Medications Home Medications: Ambulatory Orders Medication Instructions Recorded Confirmed Albuterol Sulf [Ventolin Hfa 1 - 2 puffs INH Q4HR PRN #1 inhaler 04/21/18 01/12/19 Inhaler] Oxycodone HCl/Acetaminophen 1 - 2 each PO Q6H PRN #20 tablet 01/05/19 01/12/19 [Percocet 5-325 mg Tablet] Tamsulosin [Flomax] 0.4 mg PO DAILY #20 capsule 03/22/19 Minocycline HCl 100 mg PO BID #14 cap 08/19/20 - Allergies Allergies/Adverse Reactions: Allergies Allergy/AdvReac Type Severity Reaction Status Date / Time Penicillins AdvReac Hives Verified 08/19/20 21:03 - Social History Does the pt smoke?: Yes Smoking Status: Current every day smoker Does the pt drink ETOH?: No Does the pt have substance abuse?: Yes Substance Use and Type: Heroin - Immunizations Immunizations are current?: No Immunizations: TDAP >10years/unknown - POLST Patient has POLST: No PD ED PE NORMAL - Vitals Vital signs reviewed: Yes - General General: Alert and oriented X 3, No acute distress, Well developed/nourished - HEENT HEENT: Atraumatic, PERRL, EOMI, Moist mucous membranes - Neck Neck: Supple, no meningeal sign - Cardiac Cardiac: Strong equal pulses - Respiratory Respiratory: No respiratory distress - Derm Derm: Warm and dry, Other (Several scabbed lesions in the vicinity of each elbow with erythematous streak running up the medial aspect of each upper arm toward the axilla. No axillary lymphadenopathy.No induration or fluctuance. No drainage from wounds.) - Extremities Extremities: No deformity, Normal ROM s pain, No edema - Neuro Neuro: Alert and oriented X 3, hob grinder 2-12 intact, Normal speech - Psych Psych: Normal mood, Normal affect Results - Vitals Vitals: Vital Signs - 24 hr 08/19/20 08/19/20 20:56 21:08 Temperature 36.3 C L 36.5 C Heart Rate 89 89 Respiratory 16 16 Rate Blood Pressure 155/90 H 155/90 H O2 Saturation 100 100 Oxygen O2 Source Room air PD MEDICAL DECISION MAKING - ED course Complexity details: considered differential, d/w patient, d/w family ED course: Patient was started on doxycycline in the emergency department, and tetanus was updated. None of his lesions appeared to be associated with abscess. We discussed wound care and the usual indications for return. We have discussed the need to take antibiotics as prescribed until course is complete. Departure - Departure Disposition: 01 Home, Self Care Clinical Impression: Cellulitis Qualifiers: Site of cellulitis of extremity: upper extremity Laterality: unspecified laterality Condition: Stable Instructions: ED Infec Skin Cellulitis Prescriptions: Minocycline HCl 100 mg PO BID #14 cap Comments: You have been started on antibiotics in the emergency department today. Your next dose will be due tomorrow morning, so please get your antibiotic prescription filled in the morning. Please take all the pills, as directed, until gone. Your tetanus is also been updated today, and will be next due in 10 years.
[2020-08-19 23:06] VITALS: BP 150/88
== END 2020-08-19 23:09 | disposition home or self-care (01) ==
LOC: ED 20:53
DX: L03.114 Cellulitis of left upper limb (principal); L03.113 Cellulitis of right upper limb; Z23 Encounter for immunization; F17.200 Nicotine dependence, unspecified, uncomplicated; Z88.0 Allergy status to penicillin
CPT/HCPCS: 90471; 90715; 99283; A9270

== ENCOUNTER 2021-04-06 19:44 | Emergency (ER) | payer MEDICAID ==
[2021-04-06] MEDS ORDERED: lidocaine 1% 20 ML MDV SUBQ ONE (20:02)
--- NOTE | 2021-04-06 20:14 | ED Physician Documentation ---
History of Present Illness - Stated complaint Stated Complaint: MALE - Chief complaint Chief Complaint: Wound - Additonal information Additional information: 30-year-old male presents emergency department for evaluation of an infection in his groin area. He had an ingrown hair just lateral to the penile shaft. He tried to plug it but it did not get better since then he has had progressive swelling and erythema. No history of similar in the past. Denies diabetes. No fevers. He has shaved in this area. He denies testicular pain discharge from his penis or dysuria. Review of Systems Constitutional: denies: Fever, Chills Eyes: reports: Reviewed and negative Ears: reports: Reviewed and negative Nose: reports: Reviewed and negative Throat: reports: Reviewed and negative Cardiac: reports: Reviewed and negative Respiratory: reports: Reviewed and negative Skin: reports: Lesions. denies: Rash, Abrasion (s), Laceration (s) Musculoskeletal: reports: Reviewed and negative Neurologic: reports: Reviewed and negative Psychiatric: reports: Reviewed and negative Endocrine: reports: Reviewed and negative PD PAST MEDICAL HISTORY - Past Medical History Past Medical History: No Cardiovascular: None Respiratory: None Neuro: None Endocrine/Autoimmune: None GI: None : None HEENT: None Psych: None Musculoskeletal: None Derm: None - Past Surgical History Past Surgical History: Yes Ortho: ACL reconstruction - Present Medications Home Medications: Ambulatory Orders Medication Instructions Recorded Confirmed Sulfamethox/Trimeth 800/160 1 each PO BID #14 tablet 04/06/21 [Bactrim Ds 800/160] cephALEXin [Keflex] 500 mg PO Q6H #28 cap 04/06/21 - Allergies Allergies/Adverse Reactions: Allergies Allergy/AdvReac Type Severity Reaction Status Date / Time Penicillins AdvReac Hives Verified 04/06/21 19:50 - Social History Does the pt smoke?: Yes Smoking Status: Current every day smoker Does the pt drink ETOH?: No Does the pt have substance abuse?: Yes Substance Use and Type: Marijuana - Immunizations Immunizations are current?: Yes Immunizations: TDAP >10years/unknown - POLST Patient has POLST: No PD ED PE EXPANDED - General General: Alert, No acute distress - Male Male : Circumcised, Skin lesions, Testes descended alejandro, Normal lie/cremastaric, Tenderness, Other (Swelling and erythema just lateral to the right side of the penile shaft no fluctuance. Irregular 3 x 3 cm) Results - Vitals Vitals: Vital Signs - 24 hr 04/06/21 04/06/21 19:46 20:25 Temperature 36.4 C L Heart Rate 78 92 Respiratory 16 16 Rate Blood Pressure 169/103 H 139/83 H O2 Saturation 98 98 Oxygen O2 Source Room air - Rads (name of study) Pelvic US Radiology: Final report received (1.6X1.6X0.5 cm lobulated abscess with surrounding hyperemia associated right inguinal LAD) PD MEDICAL DECISION MAKING - ED course Complexity details: reviewed results, re-evaluated patient, considered differential, d/w patient ED course: 30-year-old male presents emergency department for evaluation of 4 days right- sided pelvic erythema redness. Reports that he had an ingrown hair and a pustule which he popped. The pelvic ultrasound reveals a small 1.6 cm abscess likely too small to adequately incise and drain. Patient reports that after popping it he did have some drainage. He will be started on Keflex and Bactrim with recommendation for warm compress 3 times a day. Clinically the gentleman does not present as symptomatic for necrotizing fasciitis. If symptoms not markedly better he is to return immediately to the ER for repeat evaluation. Departure - Departure Disposition: 01 Home, Self Care Clinical Impression: Pelvic abscess in male, Pelvic cellulitis Condition: Stable Record reviewed to determine appropriate education?: Yes Instructions: ED Cellulitis Ch Prescriptions: Sulfamethox/Trimeth 800/160 [Bactrim Ds 800/160] 1 each PO BID #14 tablet cephALEXin [Keflex] 500 mg PO Q6H #28 cap Comments: Wm you do have a localized infection and small abscess in your groin region. A prescription for 2 antibiotics have been sent to the [facility] in [place]. Fill this tomorrow and begin taking as directed. Please place a warm compress over your groin for 10 minutes 3 times a day. With the antibiotics and the warm compress I would expect improved pain redness and swelling over the next 48 to 72 hours. If despite this the symptoms are worsening, you develop testicular pain, have any fevers, abdominal pain or vomiting then please return immediately to the ER for a second evaluation.
[2021-04-06 20:25] VITALS: BP 139/83
[2021-04-06] MEDS ORDERED: SULFAMETH/TRIMETH DS 800/160 MG TABLET PO STA (21:26)
[2021-04-06] MEDS ORDERED: cephALEXin 250 MG CAPSULE PO STA (21:26)
--- NOTE | 2021-04-06 21:50 | Ultrasound Report ---
PROCEDURE: Pelvic Male INDICATIONS: right going/mons ingrown hair; ? abscess TECHNIQUE: Sonographic assessment in the area of clinical concern was performed COMPARISON: Prior CT abdomen/pelvis 03/22/2019 FINDINGS: In the right groin region, area of clinical concern, there is a region of soft tissue hyperemia and h eterogeneity just beneath the skin surface, measuring up to 1.6 x 0.5 x 1.6 cm and most consistent wi th representing a phlegmon/early abscess as the presumed cause. Several nearby lymph nodes appear mil dly hyperemic and major approximately 2.6 cm, 1.7 cm and 0.8 cm in maximal dimension respectively. IMPRESSION: A discrete sharply demarcated fluid collection in the area of current inflammatory change at the righ t groin region is not seen. There is, however, hyperemia and likelihood of phlegmon and possible lashawn y abscess formation in that area measuring only 1. The area of sonographic concern measures 1.6 x 0.5 x 1.6 cm and is located approximately 4-5 mm deep to the skin surface. Reviewed by: Pavel Daniels MD on 04/06/2021 9:49 PM PST Approved by: Pavel Daniels MD on 04/06/2021 9:49 PM PST Station ID: [id number]
== END 2021-04-06 21:38 | disposition home or self-care (01) ==
LOC: ED 19:44
DX: F17.200 Nicotine dependence, unspecified, uncomplicated (principal); N48.21 Abscess of corpus cavernosum and penis; L03.314 Cellulitis of groin
CPT/HCPCS: 76857; 99283; 99284; A9270

== ENCOUNTER 2021-05-24 04:49 | Outpatient (CLI) | payer MEDICAID | END 2021-05-24 04:50 | disposition critical access hospital (66) | LOC: EMS 04:49 | DX: R40.4 Transient alteration of awareness (principal); S00.81XA Abrasion of other part of head, initial encounter; Y92.002 Bathroom of unspecified non-institutional (private) residence as the place of occurrence of the external cause; W22.8XXA Striking against or struck by other objects, initial encounter | CPT/HCPCS: A0425; A0429; A0999 ==

== ENCOUNTER 2021-05-24 05:19 | Emergency (ER) | payer MEDICAID ==
[2021-05-24 05:30] VITALS: BP 116/93
--- NOTE | 2021-05-24 05:46 | ED Physician Documentation ---
PD HPI HEAD INJURY - Stated complaint Stated Complaint: FALL - Chief complaint Chief Complaint: Neuro - History obtained from History obtained from: Patient, EMS - Additional information Additional information: Patient presenting for evaluation after a head injury. He is somewhat uncooperative with giving a history but history obtained from EMS is that patient was at home and fell hitting his head on a counter. Patient states he was sitting on the toilet when he thinks he passed out and hit his head.Reportedly girlfriend was also at the residence and heard him fall.There was reported LOC but it is unclear on how long.Patient does admit to drug use including IV heroin and GHB. He denies alcohol use.Patient denies injury elsewhere. No seizure activity reported. No incontinence or tongue biting. Review of Systems Constitutional: denies: Fever Nose: denies: Congestion Cardiac: denies: Chest pain / pressure Respiratory: denies: Dyspnea, Cough GI: denies: Abdominal Pain : denies: Dysuria Skin: reports: Abrasion (s). denies: Rash Musculoskeletal: denies: Neck pain Neurologic: reports: Syncope, Head injury. denies: Headache PD PAST MEDICAL HISTORY - Past Medical History Cardiovascular: None Respiratory: None Neuro: None Endocrine/Autoimmune: None GI: None : None HEENT: None Psych: None Musculoskeletal: None Derm: None - Past Surgical History Past Surgical History: Yes Ortho: ACL reconstruction - Allergies Allergies/Adverse Reactions: Allergies Allergy/AdvReac Type Severity Reaction Status Date / Time Penicillins AdvReac Hives Verified 05/24/21 05:32 - Social History Does the pt smoke?: Yes Smoking Status: Current every day smoker Does the pt drink ETOH?: No Does the pt have substance abuse?: Yes - Immunizations Immunizations are current?: Yes Immunizations: TDAP >10years/unknown - POLST Patient has POLST: No PD ED PE NORMAL - General General: Alert and oriented X 3, No acute distress, Well developed/nourished - HEENT HEENT: PERRL, EOMI, Moist mucous membranes, Other (Abrasion to right forehead) - Neck Neck: No bony TTP. No: C-Spine cleared by NEXUS criteria (Due to concerns for drug use) - Cardiac Cardiac: RRR, No murmur, Strong equal pulses - Respiratory Respiratory: No respiratory distress, Clear bilaterally - Abdomen Abdomen: Normal bowel sounds, Soft, Non tender - Back Back: No spinal TTP - Derm Derm: Warm and dry, No rash, Other (Abrasion to right forehead) - Extremities Extremities: No deformity, No tenderness to palpate - Neuro Neuro: Alert and oriented X 3, first dyer 2-12 intact, No motor deficit, No sensory deficit, Normal speech Eye Opening: To Voice Motor: Obeys Commands Verbal: Oriented GCS Score: 14 Results - Vitals Vitals: Vital Signs - 24 hr 05/24/21 05:24 Temperature 36.6 C Heart Rate 85 Respiratory 18 Rate Blood Pressure 116/93 H O2 Saturation 100 Oxygen O2 Source Room air - EKG (time done) 0537 Rate: Rate (enter#) (77) Rhythm: NSR [place]: Normal Ischemia: No: ST elevation c/w ischemia, ST depression PD MEDICAL DECISION MAKING - ED course ED course: Patient brought in for evaluation after a head injury. Patient does admit to drug use this evening. On exam he does have a superficial abrasion to the forehead. No other injuries noted. CT brain and C-spine were normal. An EKG was obtained due to initial unclear history of whether patient had a syncopal event. EKG without signs of arrhythmia. Pt able to ambulate Independently and does not appear acutely intoxicated. The patient is very eager for discharge. Patient left prior to receiving discharge papers. Departure - Departure Disposition: 01 Home, Self Care Clinical Impression: Polysubstance abuse Head injury Qualifiers: Encounter type: initial encounter Qualified Code(s): S09.90XA - Unspecified injury of head, initial encounter Condition: Stable Instructions: ED Head Injury Closed Comments: You were evaluated for a head injury. Your CT scans did not show any injuries In your brain or in your neck.You can use Motrin or Tylenol for pain.Return to the emergency department with any new concerns such as headache, vomiting, confusion, pain elsewhere. Discharge Date/Time: 05/24/21 07:07
--- NOTE | 2021-05-24 08:29 | CT Report ---
PROCEDURE: HEAD WO INDICATIONS: head injury/drug use TECHNIQUE: Noncontrast 4.5 mm thick angled axial sections acquired from the foramen magnum to the vertex. For r adiation dose reduction, the following was used: automated exposure control, adjustment of mA and/or kV according to patient size. COMPARISON: None. FINDINGS: Image quality: Excellent. CSF spaces: Basal cisterns are patent. No extra-axial fluid collections. Ventricles are normal in size and shape. Brain: No midline shift. No intracranial masses or hemorrhage. Galan-white matter interface is norm al. Skull and face: Calvarium and visualized facial bones are intact, without suspicious lesions. Sinuses: Visualized sinuses and mastoids are predominantly clear. IMPRESSION: No acute intracranial finding. No significant change from preliminary report. Reviewed by: Rodrigo Perez MD on 05/24/2021 8:28 AM PDT Approved by: Rodrigo Perez MD on 05/24/2021 8:28 AM PDT Station ID: [id number]
--- NOTE | 2021-05-24 08:30 | CT Report ---
PROCEDURE: CERVICAL SPINE WO INDICATIONS: head injury/drug use TECHNIQUE: Noncontrast 3 mm thick sections acquired from the skull base to the T4 level. Sagittal and coronal r eformats were then constructed. For radiation dose reduction, the following was used: automated exp osure control, adjustment of mA and/or kV according to patient size. COMPARISON: None. FINDINGS: Image quality: Excellent. Bones: No fracture, dislocation, or subluxation. Intervertebral disc spaces are congruent. Facet spac es and interspinous spaces are congruent. Normal configuration of the craniocervical junction. Mild d egenerative changes in the cervical spine. Visualized superior ribs are intact. Soft tissues: Prevertebral soft tissues are normal in thickness. No paravertebral hematomas. No ap ical pneumothoraces. IMPRESSION: No CT evidence of acute traumatic cervical spine injury. No significant change from preliminary repor t. Reviewed by: Rodrigo Perez MD on 05/24/2021 8:29 AM PDT Approved by: Rodrigo Perez MD on 05/24/2021 8:29 AM PDT Station ID: [id number]
== END 2021-05-24 07:07 | disposition home or self-care (01) ==
LOC: EDUNIT# → ED 05:19
DX: S00.81XA Abrasion of other part of head, initial encounter (principal); W18.12XA Fall from or off toilet with subsequent striking against object, initial encounter; Y92.002 Bathroom of unspecified non-institutional (private) residence as the place of occurrence of the external cause; F17.200 Nicotine dependence, unspecified, uncomplicated
CPT/HCPCS: 93005; 99283; 99284

== ENCOUNTER 2023-03-01 04:32 | Emergency (ER) | payer MEDICAID ==
[2023-03-01 06:31] VITALS: BP 121/73; O2SAT 99
== END 2023-03-01 07:52 | disposition left against medical advice (07) ==
LOC: ED 04:32
DX: Z53.21 Procedure and treatment not carried out due to patient leaving prior to being seen by health care provider (principal)

== ENCOUNTER 2023-03-02 12:30 | Outpatient (CLI) | payer MEDICAID | END 2023-03-02 23:59 | disposition home or self-care (01) | LOC: LAB.S 12:30 | PROVIDERS: ATTEND Emergency Medicine | DX: B35.6 Tinea cruris (principal) | CPT/HCPCS: 87070; 87181 ==